=== PATIENT | female | born 1965 | race Caucasian/White ===

== ENCOUNTER → 2017-08-19 | Outpatient (CLI) | payer BC ==
--- NOTE | 2017-08-20 08:51 | RADIOLOGY REPORT (SQ) ---
EXAM DESCRIPTION: MRI HEAD WITHOUT COMPLETED DATE/TIME: 08/19/2017 7:00 pm REASON FOR STUDY: HEADACHE R51 HEADACHE COMPARISON: None. TECHNIQUE: Multiplanar imaging includes non-contrasted T1, T2, FLAIR, and diffusion with ADC map seq uences. Images stored on PACS. LIMITATIONS: None. FINDINGS: ANATOMY: No anomalies. Normal vascular flow voids. Pituitary fossa normal. CSF SPACES: Normal in size and contour. No hemorrhage. CEREBRUM: Sulci and gyri normal in size and contour. Occasional punctate foci of increased signal on FLAIR sequence in the white matter most consistent with chronic microangiopathic ischemic change, mi graine, or sequela of vasculitis. No evidence of hemorrhage, mass, or extraaxial fluid collection. POSTERIOR FOSSA: No signal alteration. No hemorrhage. No edema, masses or mass effect. Internal joycelyn tory canals, cerebello-pontine angles, mastoids normal. DIFFUSION IMAGING: Negative for acute or sub-acute infarction. ORBITS: No masses. Globes normal. PARANASAL SINUSES: No fluid levels. Mucosa normal. OTHER: No other significant finding. IMPRESSION: No acute findings in the brain. EVIDENCE OF ACUTE STROKE: NO. TECHNICAL DOCUMENTATION: JOB ID: [id number] [employer]- All Rights Reserved
== END ==
LOC: RAD 18:15
PROVIDERS: ATTEND Internal Medicine
DX: R51 Headache (principal)
CPT/HCPCS: 70551

== ENCOUNTER 2018-01-03 15:57 | Observation (INO) | payer BC ==
[2018-01-03 17:05] LABS: ABSOLUTE EOSINOPHILS # (AUTO) 0.2 10^3/uL (0.0-0.6); ABSOLUTE LYMPHOCYTES (AUTO) 1.2 10^3/uL (0.5-4.7); ABSOLUTE MONOCYTES (AUTO) 0.8 10^3/uL (0.1-1.4); ABSOLUTE NEUT (AUTO) 8.6 10^3/uL (1.7-8.2); BASOPHILS % (AUTO) 0.2 % (0-2); EOSINOPHILS % (AUTO) 1.8 % (0-6); HEMATOCRIT 43.2 % (36.0-47.0); HEMOGLOBIN 14.7 g/dL (12.0-15.5); LYMPHOCYTES % (AUTO) 10.9 % (13-45); MEAN CORPUSCULAR HEMOGLOBIN 30.4 pg (27.0-33.4); MEAN CORPUSCULAR VOLUME 89 fl (80-97); MONOCYTES % (AUTO) 7.7 % (3-13); PLATELET COUNT 310 10^3/uL (150-450); RED BLOOD COUNT 4.84 10^6/uL (3.72-5.28); RED CELL DISTRIBUTION WIDTH 12.5 % (11.5-14.0); SEGMENTED NEUTROPHILS % (AUTO) 79.4 % (42-78); TOTAL CELLS COUNTED % (AUTO) 100 %; WHITE BLOOD COUNT 10.9 10^3/uL (4.0-10.5)
[2018-01-03 17:25] LABS: ALANINE AMINOTRANSFERASE 28 U/L (9-52); ALBUMIN 4.4 g/dL (3.5-5.0); ALKALINE PHOSPHATASE 63 U/L (38-126); ANION GAP 13 (5-19); ASPARTATE AMINO TRANSFERASE 25 U/L (14-36); BILIRUBIN,DIRECT 0.3 mg/dL (0.0-0.4); BILIRUBIN,TOTAL 0.5 mg/dL (0.2-1.3); BLOOD UREA NITROGEN 14 mg/dL (7-20); CALCIUM 9.8 mg/dL (8.4-10.2); CARBON DIOXIDE 28 mmol/L (22-30); CHLORIDE 106 mmol/L (98-107); GLUCOSE 77 mg/dL (75-110); IRON(TIBC) 34.7 ug/dL (37-170); POTASSIUM 4.8 mmol/L (3.6-5.0); SODIUM 147.4 mmol/L (137-145); TOTAL PROTEIN 7.6 g/dL (6.3-8.2)
--- NOTE | 2018-01-03 17:50 | RADIOLOGY REPORT (SQ) ---
EXAM DESCRIPTION: MRI HEAD WITHOUT COMPLETED DATE/TIME: 01/03/2018 5:33 pm REASON FOR STUDY: headache COMPARISON: 08/19/2017 TECHNIQUE: Multiplanar imaging includes non-contrasted T1, T2, FLAIR, and Diffusion with ADC map seq uences. Images stored on PACS. LIMITATIONS: None. FINDINGS: ANATOMY: No anomalies. Normal vascular flow voids. Pituitary fossa normal. CSF SPACES: Normal in size and contour. No hemorrhage. CEREBRUM: A few high-signal intensity lesions scattered throughout the white matter on FLAIR imaging with distribution suggesting chronic micro-vascular ischemic change. Sulci and gyri normal in size a nd contour. No evidence of hemorrhage, mass or extraaxial fluid collection. POSTERIOR FOSSA: No signal alteration. No hemorrhage. No edema, masses or mass effect. Internal joycelyn tory canals, cerebello-pontine angles, mastoids normal. DIFFUSION: Negative for acute or sub-acute infarction. ORBITS: No masses. Globes normal. PARANASAL SINUSES: Small maxillary sinus fluid levels. OTHER: No other significant finding. IMPRESSION: Negative for acute or sub-acute infarction.A few high-signal intensity lesions scattered throughout the white matter on FLAIR imaging with distribution suggesting chronic micro-vascular isc hemic change. Mild maxillary sinusitis. EVIDENCE OF ACUTE STROKE: NO. TECHNICAL DOCUMENTATION: JOB ID: [id number] [id number] [employer]- All Rights Reserved Reading location - IP/workstation name: [email or web address]
--- NOTE | 2018-01-03 19:38 | EKG REPORT ---
SEVERITY:- NORMAL ECG - SINUS RHYTHM : Confirmed by: Nate Cristobal MD 03-Jan-2018 19:36:55
[2018-01-03] MEDS ORDERED: ACETAMINOPHEN 325 MG TABLET PO PRN (20:15)
[2018-01-03] MEDS ORDERED: (PENDING PHARMACY ID) (Valacyclovir Hcl [Valacyclovir] 1,000 MG) PO PRN (20:15)
[2018-01-03] MEDS ORDERED: PAROXETINE MESYLATE 7.5 MG PO SCH (20:15)
[2018-01-03] MEDS ORDERED: ACETAMINOPHEN 325 MG TABLET ONE (20:16)
[2018-01-03] MEDS ORDERED: DEXTROSE 5%-WATER 1000 ML 1,000 ML IV PRN (20:16)
[2018-01-03 21:06] LABS: APPEARANCE,URINE CLEAR; BILIRUBIN,URINE NEGATIVE (NEGATIVE); COLOR,URINE LIGHT YELLOW; GLUCOSE, URINE NEGATIVE (NEGATIVE); KETONES,URINE NEGATIVE (NEGATIVE); URINE SPECIFIC GRAVITY 1.015
[2018-01-03] MEDS: ALPRAZOLAM 0.5 MG TABLET PO SCH (21:07)
[2018-01-03 21:10] LABS: LEUKOCYTE ESTERASE,URINE NEGATIVE (NEGATIVE); NITRITE,URINE NEGATIVE (NEGATIVE); PROTEIN,URINE NEGATIVE (NEGATIVE); UROBILINOGEN,URINE NEGATIVE mg/dL (<2.0)
[2018-01-04] MEDS ORDERED: LEVOTHYROXINE SODIUM 0.025 MG TABLET PO SCH (06:00)
--- NOTE | 2018-01-04 09:48 | PDOC H&P ---
History of Present Illness Admission Date/PCP: 01/03/18 15:57 NIESHA LEON MD History of Present Illness: JEFFERY LAY is a 52 year old female, she came to the office for evaluation of multiple complaints, including palpitation, headache, elevated blood pressure , numbness of the extremities, chest pain, there was no apparent unifying diagnosis for this complaints, I felt it is best to admit her for observation and evaluation of her symptoms. MRI brain was normal it was negative for any intracranial pathology, metabolic panel including thyroid function test, B12 level, kidney function test, liver function tests all came back normal. The hemogram was normal. The blood pressure recorded in the hospital was 130 systolic, the blood pressure, in the office was 160 systolic. There is no metabolic or structural explanation for her symptoms on further questioning she admitted to having a lot of stress at home, she is taking custody of her grandchildren, that seems to be giving her some stressful conditions. She brought with her to the office a logbook of her blood pressure recordings, it showed persistent elevated blood pressure, she is presently not on any medication for the control blood pressure, based on the log book recording of the blood pressure she meets the criteria for the diagnosis of hypertension which is persistent elevated blood pressure. Social History Smoking Status: Unknown if Ever Smoked Hx Prescription Drug Abuse: No Family History Parental Family History Reviewed: Yes Children Family History Reviewed: Yes Sibling(s) Family History Reviewed.: Yes Medication/Allergy Home Medications: Alprazolam [Xanax 0.5 mg Tablet] 0.5 mg PO BID 01/03/18 Levothyroxine Sodium [Synthroid] 25 mcg PO Q6AM 01/03/18 Paroxetine Mesylate [Brisdelle] 7.5 mg PO QPM 01/03/18 Allergies/Adverse Reactions: No Known Allergies Allergy (Unverified 01/03/18 20:14) Review of Systems Constitutional: ABSENT: chills, fever(s), headache(s), weight gain, weight loss Eyes: ABSENT: visual disturbances Ears: ABSENT: hearing changes Cardiovascular: ABSENT: chest pain, dyspnea on exertion, edema, orthropnea, palpitations Respiratory: PRESENT: cough. ABSENT: hemoptysis Gastrointestinal: ABSENT: abdominal pain, constipation, diarrhea, hematemesis, hematochezia, nausea, vomiting Genitourinary: ABSENT: dysuria, hematuria Musculoskeletal: ABSENT: joint swelling Integumentary: ABSENT: rash, wounds Neurological: ABSENT: abnormal gait, abnormal speech, confusion, dizziness, focal weakness, syncope Psychiatric: ABSENT: anxiety, depression, homidical ideation, suicidal ideation Endocrine: ABSENT: cold intolerance, heat intolerance, menstrual abnormalities, polydipsia, polyuria Hematologic/Lymphatic: ABSENT: easy bleeding, easy bruising, lymphadenopathy Physical Exam Vital Signs: Temp Pulse Resp BP Pulse Ox 97.6 F 57 L 20 117/64 99 01/04/18 03:39 01/04/18 07:00 01/04/18 03:39 01/04/18 03:39 01/04/18 03:39 Intake & Output 01/03/18 01/04/18 01/05/18 06:59 06:59 06:59 Intake Total 1187 Output Total 850 Balance 337 General appearance: PRESENT: no acute distress, well-developed, well-nourished Head exam: PRESENT: atraumatic, normocephalic Eye exam: PRESENT: conjunctiva pink, EOMI, PERRLA Ear exam: PRESENT: normal external ear exam Mouth exam: PRESENT: moist, tongue midline Neck exam: PRESENT: full ROM Respiratory exam: PRESENT: clear to auscultation bal Cardiovascular exam: PRESENT: RRR, +S1, +S2 Pulses: PRESENT: normal dorsalis pedis pul, +2 pedal pulses bilateral Vascular exam: PRESENT: normal capillary refill GI/Abdominal exam: PRESENT: normal bowel sounds, soft Rectal exam: PRESENT: deferred Neurological exam: PRESENT: alert, awake, oriented to person, oriented to place , oriented to time, oriented to situation, CN II-XII grossly intact Psychiatric exam: PRESENT: appropriate affect, normal mood Skin exam: PRESENT: dry, intact, warm Results Laboratory Results: 01/03/18 16:55 01/03/18 16:55 01/03/18 01/03/18 01/03/18 16:55 16:55 16:55 WBC 10.9 H RBC 4.84 Hgb 14.7 Hct 43.2 MCV 89 MCH 30.4 MCHC 34.0 RDW 12.5 Plt Count 310 Seg Neutrophils % 79.4 H Lymphocytes % 10.9 L Monocytes % 7.7 Eosinophils % 1.8 Basophils % 0.2 Absolute Neutrophils 8.6 H Absolute Lymphocytes 1.2 Absolute Monocytes 0.8 Absolute Eosinophils 0.2 Absolute Basophils 0.0 Sodium 147.4 H Potassium 4.8 Chloride 106 Carbon Dioxide 28 Anion Gap 13 BUN 14 Creatinine 0.79 Est GFR ( Amer) > 60 Est GFR (Non-Af Amer) > 60 Glucose 77 Calcium 9.8 Iron 34.7 L TIBC 364 % Saturation 10 Ferritin 30.10 Total Bilirubin 0.5 AST 25 ALT 28 Alkaline Phosphatase 63 Total Protein 7.6 Albumin 4.4 Vitamin B12 400.0 Folate 15.90 TSH 0.65 Urine Color Urine Appearance Urine pH Ur Specific [place] Urine Protein Urine Glucose (UA) Urine Ketones Urine Blood Urine Nitrite Ur Leukocyte Esterase Stool Occult Blood 01/03/18 01/03/18 20:20 23:49 WBC RBC Hgb Hct MCV MCH MCHC RDW Plt Count Seg Neutrophils % Lymphocytes % Monocytes % Eosinophils % Basophils % Absolute Neutrophils Absolute Lymphocytes Absolute Monocytes Absolute Eosinophils Absolute Basophils Sodium Potassium Chloride Carbon Dioxide Anion Gap BUN Creatinine Est GFR ( Amer) Est GFR (Non-Af Amer) Glucose Calcium Iron TIBC % Saturation Ferritin Total Bilirubin AST ALT Alkaline Phosphatase Total Protein Albumin Vitamin B12 Folate TSH Urine Color LIGHT YELLOW Urine Appearance CLEAR Urine pH 6.0 Ur Specific [place] 1.015 Urine Protein NEGATIVE Urine Glucose (UA) NEGATIVE Urine Ketones NEGATIVE Urine Blood NEGATIVE Urine Nitrite NEGATIVE Ur Leukocyte Esterase NEGATIVE Stool Occult Blood NEGATIVE Impressions: Head MRI 01/03/18 00:00 IMPRESSION: Negative for acute or sub-acute infarction.A few high-signal intensity lesions scattered throughout the white matter on FLAIR imaging with distribution suggesting chronic micro-vascular ischemic change. Mild maxillary sinusitis. EVIDENCE OF ACUTE STROKE: NO. Assessment & Plan - Diagnosis (1) Hypertension Qualifiers: Hypertension type: essential hypertension Qualified Code(s): I10 - Essential (primary) hypertension Is this a current diagnosis for this admission?: Yes Plan: She meets criteria for hypertension, she be discharged on low-dose amlodipine (2) Acute sinusitis Qualifiers: Sinusitis location: unspecified location Recurrence: recurrent Qualified Code(s): J01.91 - Acute recurrent sinusitis, unspecified Is this a current diagnosis for this admission?: Yes
[2018-01-04 09:50] VITALS: BP 134/64
[2018-01-04] MEDS: ALPRAZOLAM 0.5 MG TABLET PO SCH (09:53)
--- NOTE | 2018-01-04 09:59 | PDOC DISCHARGE SUMMARY ---
General - Admit/Disc Date/PCP Admission Date/Primary Care Provider: 01/03/18 15:57 NIESHA LEON MD Discharge Date: 01/04/18 - Discharge Diagnosis (1) Hypertension Is this a current diagnosis for this admission?: Yes (2) Acute sinusitis Is this a current diagnosis for this admission?: Yes - Additional Information Discharge Diet: As Tolerated Prescriptions: Amlodipine Besylate 2.5 mg PO DAILY #30 tab Chlorpheniramine/Codeine Phos [Chlorpheniramine-Codeine Liquid] 10 ml PO Q6 PRN #180 ml PRN Reason: Montelukast Sodium 10 mg PO DAILY #30 tablet Home Medications: Alprazolam [Xanax 0.5 mg Tablet] 0.5 mg PO BID 01/03/18 Levothyroxine Sodium [Synthroid] 25 mcg PO Q6AM 01/03/18 Paroxetine Mesylate [Brisdelle] 7.5 mg PO QPM 01/03/18 Amlodipine Besylate 2.5 mg PO DAILY #30 tab 01/04/18 Chlorpheniramine/Codeine Phos [Chlorpheniramine-Codeine Liquid] 10 ml PO Q6 PRN #180 ml 01/04/18 Montelukast Sodium 10 mg PO DAILY #30 tablet 01/04/18 History of Present Illness History of Present Illness: JEFFERY LAY is a 52 year old female, she came to the office for evaluation of multiple complaints, including palpitation, headache, elevated blood pressure , numbness of the extremities, chest pain, there was no apparent unifying diagnosis for this complaints, I felt it is best to admit her for observation and evaluation of her symptoms. MRI brain was normal it was negative for any intracranial pathology, metabolic panel including thyroid function test, B12 level, kidney function test, liver function tests all came back normal. The hemogram was normal. The blood pressure recorded in the hospital was 130 systolic, the blood pressure, in the office was 160 systolic. There is no metabolic or structural explanation for her symptoms on further questioning she admitted to having a lot of stress at home, she is taking custody of her grandchildren, that seems to be giving her some stressful conditions. She brought with her to the office a logbook of her blood pressure recordings, it showed persistent elevated blood pressure, she is presently not on any medication for the control blood pressure, based on the log book recording of the blood pressure she meets the criteria for the diagnosis of hypertension which is persistent elevated blood pressure. Hospital Course Hospital Course: Patient was admitted for the evaluation and management of multiple symptoms, there was no unifying diagnosis, MRI brain was done it was negative, she is presently on the stressful situation, she is taking custody of her grandchildren , blood pressure persistently elevated from outpatient recording in the logbook. She also complained of cough, she was admitted for observation. Physical Exam Vital Signs: Temp Pulse Resp BP Pulse Ox 97.6 F 57 L 20 134/64 H 99 01/04/18 09:40 01/04/18 09:40 01/04/18 09:40 01/04/18 09:40 01/04/18 09:40 Intake & Output 01/03/18 01/04/18 01/05/18 06:59 06:59 06:59 Intake Total 1187 Output Total 850 Balance 337 General appearance: PRESENT: no acute distress, well-developed, well-nourished Head exam: PRESENT: atraumatic, normocephalic Eye exam: PRESENT: conjunctiva pink, EOMI, PERRLA Ear exam: PRESENT: normal external ear exam Mouth exam: PRESENT: moist, tongue midline Neck exam: PRESENT: full ROM Respiratory exam: PRESENT: clear to auscultation bal Cardiovascular exam: PRESENT: RRR, +S1, +S2 Pulses: PRESENT: normal dorsalis pedis pul, +2 pedal pulses bilateral Vascular exam: PRESENT: normal capillary refill GI/Abdominal exam: PRESENT: normal bowel sounds, soft Rectal exam: PRESENT: deferred Neurological exam: PRESENT: alert, awake, oriented to person, oriented to place , oriented to time, oriented to situation, CN II-XII grossly intact Psychiatric exam: PRESENT: appropriate affect, normal mood Skin exam: PRESENT: dry, intact, warm Results Laboratory Results: 01/03/18 16:55 01/03/18 16:55 01/03/18 01/03/18 01/03/18 16:55 16:55 16:55 WBC 10.9 H RBC 4.84 Hgb 14.7 Hct 43.2 MCV 89 MCH 30.4 MCHC 34.0 RDW 12.5 Plt Count 310 Seg Neutrophils % 79.4 H Lymphocytes % 10.9 L Monocytes % 7.7 Eosinophils % 1.8 Basophils % 0.2 Absolute Neutrophils 8.6 H Absolute Lymphocytes 1.2 Absolute Monocytes 0.8 Absolute Eosinophils 0.2 Absolute Basophils 0.0 Sodium 147.4 H Potassium 4.8 Chloride 106 Carbon Dioxide 28 Anion Gap 13 BUN 14 Creatinine 0.79 Est GFR ( Amer) > 60 Est GFR (Non-Af Amer) > 60 Glucose 77 Calcium 9.8 Iron 34.7 L TIBC 364 % Saturation 10 Ferritin 30.10 Total Bilirubin 0.5 AST 25 ALT 28 Alkaline Phosphatase 63 Total Protein 7.6 Albumin 4.4 Vitamin B12 400.0 Folate 15.90 TSH 0.65 Urine Color Urine Appearance Urine pH Ur Specific [place] Urine Protein Urine Glucose (UA) Urine Ketones Urine Blood Urine Nitrite Ur Leukocyte Esterase Stool Occult Blood 01/03/18 01/03/18 20:20 23:49 WBC RBC Hgb Hct MCV MCH MCHC RDW Plt Count Seg Neutrophils % Lymphocytes % Monocytes % Eosinophils % Basophils % Absolute Neutrophils Absolute Lymphocytes Absolute Monocytes Absolute Eosinophils Absolute Basophils Sodium Potassium Chloride Carbon Dioxide Anion Gap BUN Creatinine Est GFR ( Amer) Est GFR (Non-Af Amer) Glucose Calcium Iron TIBC % Saturation Ferritin Total Bilirubin AST ALT Alkaline Phosphatase Total Protein Albumin Vitamin B12 Folate TSH Urine Color LIGHT YELLOW Urine Appearance CLEAR Urine pH 6.0 Ur Specific [place] 1.015 Urine Protein NEGATIVE Urine Glucose (UA) NEGATIVE Urine Ketones NEGATIVE Urine Blood NEGATIVE Urine Nitrite NEGATIVE Ur Leukocyte Esterase NEGATIVE Stool Occult Blood NEGATIVE Impressions: Head MRI 01/03/18 00:00 IMPRESSION: Negative for acute or sub-acute infarction.A few high-signal intensity lesions scattered throughout the white matter on FLAIR imaging with distribution suggesting chronic micro-vascular ischemic change. Mild maxillary sinusitis. EVIDENCE OF ACUTE STROKE: NO. Qualifiers - * PATIENT BEING DISCHARGED WITH ANY OF THE FOLLOWING DIAGNOSIS: No
== END 2018-01-04 10:30 | disposition home or self-care (01) ==
LOC: 3W 15:57
PROVIDERS: ADMIT Internal Medicine; ATTEND Internal Medicine
DX: I10 Essential (primary) hypertension (principal); J32.0 Chronic maxillary sinusitis; R00.2 Palpitations; R20.0 Anesthesia of skin; R05 Cough; Z63.79 Other stressful life events affecting family and household; Z79.899 Other long term (current) drug therapy
CPT/HCPCS: 36415; 87086; 82607; 82728; 82746; 83540; 83550; 84443; 85025; 82272; 80076; 80048; 81001; 70551; 93005; 93010; G0378 ×2; J7060

== ENCOUNTER 2018-07-19 13:02 | Emergency (ER) | payer BC ==
[2018-07-19] MEDS ORDERED: TETRACAINE HCL 0.5% OPH SOLN 4 ML OD ONE (14:30)
[2018-07-19] MEDS ORDERED: TOBRAMYCIN SULFATE/DEXAMETH OPH SUSP 2.5 ML OU ONE (14:46)
--- NOTE | 2018-07-19 14:52 | ER Document Report ---
Addendum entered and electronically signed by ODALYS TELLO PA-C 07/19/18 15:56: Discharge - Discharge Clinical Impression: Acute conjunctivitis, bilateral Qualifiers: Acute conjunctivitis type: bacterial Qualified Code(s): H10.33 - Unspecified acute conjunctivitis, bilateral Condition: Stable Disposition: HOME, SELF-CARE Instructions: Conjunctivitis ([facility]) Additional Instructions: Conjunctivitis You have an infection in your eye, commonly known as "pink eye." Conjunctivitis causes redness, mild discomfort, itching, and mattering on the eyelids. It is very contagious, so you must be careful to wash your hands after touching your face so you don't pass the infection on to others. Conjunctivitis is caused by both viruses and bacteria. It usually responds quickly to treatment with antibiotic drops. These should be placed in the eye as prescribed (usually every three to four hours while you're awake). If you wear contact lenses, don't put them in your eyes until the infection is cleared and you are no longer using the drops (unless your doctor advises you otherwise). Should you develop increasing eye pain, severe swelling, decreased vision, or fail to improve as expected, please return for re-examination. I have written you for a different type of an antibiotic at also has a slight steroid in it as well to hopefully work on any kind inflammatory response that may be coming along with this. It is going to be 1 drop each eye every 4 hours for the first 24 hours and then every 6 hours for 7 days. Again monitor yourself for washing of hands changing wash rag's and pillowcases though you do not wear makeup double check to make sure you do not grab something that you had previously. I am giving you the name of the direct chill casting operator group to work well with our hospital here if you are having continued problems with this you probably need to follow-up with them on Saturday or Saturday. If you should have any problems over the weekend return to ER for a recheck. Prescriptions: Tobramycin Sulfate/Dexameth [Tobradex Oph Drops 2.5 Ml Bottle] 1 drop AU ASDIR PRN #1 bottle PRN Reason: Tobramycin Sulfate/Dexameth [Tobradex Oph Drops 2.5 Ml Bottle] 1 drop AU ASDIR PRN #1 bottle PRN Reason: Referrals: BATSHEVA PEREZ DO [ACTIVE STAFF] - Follow up as needed NIESHA LEON MD [Primary Care Provider] - Follow up as needed Addendum entered and electronically signed by ODALYS TELLO PA-C 07/19/18 14:57: Discharge - Discharge Clinical Impression: Acute conjunctivitis, bilateral Qualifiers: Acute conjunctivitis type: bacterial Qualified Code(s): H10.33 - Unspecified acute conjunctivitis, bilateral Condition: Stable Disposition: HOME, SELF-CARE Instructions: Conjunctivitis ([facility]) Additional Instructions: Conjunctivitis You have an infection in your eye, commonly known as "pink eye." Conjun ctivitis causes redness, mild discomfort, itching, and mattering on the eyelids. It is very contagious, so you must be careful to wash your hands after touching your face so you don't pass the infection on to others. Conjunctivitis is caused by both viruses and bacteria. It usually responds quickly to treatment with antibiotic drops. These should be placed in the eye as prescribed (usually every three to four hours while you're awake). If you wear contact lenses, don't put them in your eyes until the infection is cleared and you are no longer using the drops (unless your doctor advises you otherwise). Should you develop increasing eye pain, severe swelling, decreased vision, or fail to improve as expected, please return for re-examination. I have written you for a different type of an antibiotic at also has a slight steroid in it as well to hopefully work on any kind inflammatory response that may be coming along with this. It is going to be 1 drop each eye every 4 hours for the first 24 hours and then every 6 hours for 7 days. Again monitor yourself for washing of hands changing wash rag's and pillowcases though you do not wear makeup double check to make sure you do not grab something that you had previously. I am giving you the name of the direct chill casting operator group to work well with our hospital here if you are having continued problems with this you probably need to follow-up with them on Saturday or Saturday. If you should have any problems over the weekend return to ER for a recheck. Referrals: BATSHEVA PEREZ DO [ACTIVE STAFF] - Follow up as needed NIESHA LEON MD [Primary Care Provider] - Follow up as needed Original Note: ED Eye Complaint - General Chief Complaint: Eye Problem Stated Complaint: EYE PAIN Time Seen by Provider: 07/19/18 14:23 Mode of Arrival: Ambulatory Information source: Patient Notes: Patient is a 53-year-old female comes emergency room complaining of red eyes. She states she started about 1 week ago with it in her left eye. She contacted her primary medical provider who called her in some Cipro drops. She has been using them religiously and states that it jumped from her left eye to her right eye and then back again to her left eye. She also complains that she is having crusting in the morning that is a greenish in color and she has to use warm wash rag and soap to get it off and open her eyes. She denies any visual changes she does not wear contacts. She does wear eyeglasses. 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 She does not smoke. She states that she does ask process of washing of her hands and trying to avoid touching her eyes. TRAVEL OUTSIDE OF THE [place] IN LAST 30 DAYS: No - HPI Onset: Last week Eye location: Bilateral Occurred at: Home Quality of pain: Other - Itchy Severity: Moderate Pain Level: 3 Exposure: Conjunctivitis Safety glasses worn: No Contact lenses worn: No Associated symptoms: Itching. denies: Photophobia, Orbital swelling, Blurred vision, Double vision, Decreased vision, Loss of vision - Related Data Allergies/Adverse Reactions: No Known Allergies Allergy (Unverified 01/03/18 20:14) Past Medical History - Social History Smoking Status: Never Smoker Frequency of alcohol use: None Drug Abuse: None Lives with: Family Family History: Reviewed & Not Pertinent Patient has suicidal ideation: No Patient has homicidal ideation: No - Past Medical History Cardiac Medical History: Reports: Hx Hypertension Renal/ Medical History: Denies: Hx Peritoneal Dialysis Past Surgical History: Reports: Hx Hysterectomy Review of Systems - Review of Systems Constitutional: No symptoms reported EENT: See HPI, Eye discharge Cardiovascular: No symptoms reported Respiratory: No symptoms reported Gastrointestinal: No symptoms reported Genitourinary: No symptoms reported Female Genitourinary: No symptoms reported Musculoskeletal: No symptoms reported Skin: No symptoms reported Hematologic/Lymphatic: No symptoms reported Neurological/Psychological: No symptoms reported -: Yes All other systems reviewed and negative Physical Exam - Vital signs Vitals: Temp Pulse BP Pulse Ox 97.9 F 90 144/72 H 96 07/19/18 13:39 07/19/18 13:39 07/19/18 13:39 07/19/18 13:39 Interpretation: Hypertensive - Notes Notes: PHYSICAL EXAMINATION: GENERAL: Patient is a well-nourished well-developed 53-year-old female who is in no apparent distress on physical exam this afternoon. She does however appear somewhat uncomfortable because of her eye situation. HEAD: Atraumatic, normocephalic. EYES: Pupils are equal and reactive to light. Examination of the conjunctiva shows it to be very much injected greater on the left than the right. The right eye is moderately injected and there appear to be a defect on the lateral portion of the sclera. The lids had some moderate amount of residue from crusting still present and mild erythema on the upper and lower lid themselves. Under fluoroscopy seen stain I did not find any defects in the sclera or the conjunctiva or the cornea. I stained the right eye only. I did look at the right eye under slit lamp and again did not see any defects. It must have been a glare of some sort. There is no visual problems currently. ENT: Examination head and upper airway showed nasal mucosa to be normal in appearance moist mucosa with no rhinorrhea. There is no nasal congestion noted. Bilateral maxillary and frontal sinuses have no discomfort or pain to palpation or percussion. The posterior pharynx is normal in appearance moist with no erythema no exudates the airway is patent. NECK: Normal range of motion, supple without lymphadenopathy LUNGS: Breath sounds clear to auscultation bilaterally and equal. No wheezes rales or rhonchi. HEART: Regular rate and rhythm without murmurs Female : deferred Musculoskeletal: Normal range of motion, no pitting or edema. No cyanosis. NEUROLOGICAL: Normal speech, normal gait. Normal sensory, motor exams PSYCH: Normal mood, normal affect. SKIN: Warm, Dry, normal turgor, no rashes or lesions noted. Course - Re-evaluation Re-evalutation: 07/19/18 14:52 As stated examination of the right eye was more concerning with what appeared thought to be a defect of some sort in the sclera I did examine it closely with fluorescein and slit and there was no abnormalities found. It must of been a glare of some sort on my initial examination that I had the do in the hallway bed. Patient has still has no complaints of visual problems. I still believe this to be a bacterial conjunctivitis that is spreading back and forth. I have given patient instructions on washing hands changing wash rag staining pillowcases and even though she says she continues to wash heavily and not touch her eyes can always occur in her sleep. I am going to give her the name of the direct chill casting operator that group locally so she may contact them if is not getting a whole lot better by Saturday. We are going to change her to TobraDex to also work on any kind of a inflammatory response. - Vital Signs Vital signs: Temp Pulse Resp BP Pulse Ox 97.9 F 90 144/72 H 96 07/19/18 13:39 07/19/18 13:39 07/19/18 13:39 07/19/18 13:39 Discharge - Discharge Clinical Impression: Acute conjunctivitis, bilateral Qualifiers: Acute conjunctivitis type: bacterial Qualified Code(s): H10.33 - Unspecified acute conjunctivitis, bilateral Condition: Stable Disposition: HOME, SELF-CARE Instructions: Conjunctivitis ([facility]) Additional Instructions: Conjunctivitis You have an infection in your eye, commonly known as "pink eye." Conjunctivitis causes redness, mild discomfort, itching, and mattering on the eyelids. It is very contagious, so you must be careful to wash your hands after touching your face so you don't pass the infection on to others. Conjunctivitis is caused by both viruses and bacteria. It usually responds quickly to treatment with antibiotic drops. These should be placed in the eye as prescribed (usually every three to four hours while you're awake). If you wear contact lenses, don't put them in your eyes until the infection is cleared and you are no longer using the drops (unless your doctor advises you otherwise). Should you develop increasing eye pain, severe swelling, decreased vision, or fail to improve as expected, please return for re-examination. I have written you for a different type of an antibiotic at also has a slight steroid in it as well to hopefully work on any kind inflammatory response that may be coming along with this. It is going to be 1 drop each eye every 4 hours for the first 24 hours and then every 6 hours for 7 days. Again monitor yourself for washing of hands changing wash rag's and pillowcases though you do not wear makeup double check to make sure you do not grab something that you had previously. I am giving you the name of the direct chill casting operator group to work well with our hospital here if you are having continued problems with this you probably need to follow-up with them on Saturday or Saturday. If you should have any problems over the weekend return to ER for a recheck. Referrals: NIESHA LEON MD [Primary Care Provider] - Follow up as needed BATSHEVA PEREZ DO [ACTIVE STAFF] - Follow up as needed
[2018-07-19 16:04] VITALS: BP 119/60
== END 2018-07-19 16:04 | disposition home or self-care (01) ==
LOC: ER 13:02
DX: H10.33 Unspecified acute conjunctivitis, bilateral (principal); I10 Essential (primary) hypertension; H57.12 Ocular pain, left eye
CPT/HCPCS: 99283; J3490

== ENCOUNTER → 2019-02-19 | Outpatient (CLI) | payer BC | LOC: WI 11:54 | PROVIDERS: ATTEND Internal Medicine | DX: Z12.31 Encounter for screening mammogram for malignant neoplasm of breast (principal) | CPT/HCPCS: 77063; 77067 ==

== ENCOUNTER → 2019-03-11 | Outpatient (CLI) | payer BC ==
--- NOTE | 2019-03-11 17:12 | WOMENS IMAGING REPORT ---
EXAM DESCRIPTION: RIGHT DIAGNOSTIC MAMMO W/CAD; U/S BREAST UNILAT LIMITED COMPLETED DATE/TIME: 03/11/2019 12:43 pm; 03/11/2019 2:05 pm REASON FOR STUDY: N63.11 DX MAMMO R BREAST; RT BREAST N63.11 N63.11 UNSPECIFIED LUMP IN THE RIGHT B REAST, UPPER OUTER GABE COMPARISON: 02/19/2019 EXAM PARAMETERS: True lateral view and cone compression views of the right breast LIMITATIONS: None. FINDINGS: BREAST LATERALITY: Right MASSES: No definite mass. CALCIFICATIONS: No new or suspicious calcifications. ARCHITECTURAL DISTORTION: None. DEVELOPING DENSITY: None. ASYMMETRY: Persistent asymmetry in the upper-outer quadrant. OTHER: No other significant findings. BREAST ULTRASOUND: TECHNIQUE: Static and dynamic grayscale images acquired of the right breast in the specific areas of clinical/mammographic concern. Selected color Doppler images recorded. ELASTOGRAPHY PERFORMED: No. LIMITATIONS: None. FINDINGS: MASS: Dense fibroglandular tissue is noted in the upper-outer quadrant corresponding to the asymmetri c density seen on mammography. At 1 to 2 o'clock, there are 2 small hypoechoic nodules, 1 measuring 4 mm and 1 measuring 5 mm. Appearance is most consistent with small cysts. No suspicious solid mass es. ELASTOGRAPHY CHARACTERISTICS: Not applicable. OTHER: No other significant finding. IMPRESSION: 1. Probably benign findings in the right breast. The patient has had previous mammogra ms and comparison with these studies if they are obtained will be performed. If these films are not receive then six-month followup mammography would be warranted. BREAST DENSITY: c. The breasts are heterogeneously dense, which may obscure small masses. BIRAD: ASSESSMENT: 3 Probably benign finding. Initial short-interval follow-up suggested. RECOMMENDATION: RECOMMENDED FOLLOW UP: Comparison with prior studies if they are received otherwise six-month followup mammography. SPECIFIC INTERVENTION/IMAGING/CONSULTATION RECOMMENDED:No additional intervention/ imaging/consultati on needed at this time. COMMUNICATION:The negative/benign results were communicated to the patient. COMMENT: The patient has been notified of the results by letter per MQSA requirements. Additional no tification policies are in place for contacting patient with suspicious or incomplete findings. Quality ID #[id number]: The [employer] recommends an annual screening mammogram for women aged 40 years or over. This facility utilizes a reminder system to ensure that all patients receive reminder letters, and/or direct phone calls for appointments. This includes reminders for routine scr eening mammograms, diagnostic mammograms, or other Breast Imaging Interventions when appropriate. Th is patient will be placed in the appropriate reminder system. TECHNICAL DOCUMENTATION: FINDING NUMBER: (1) ASSESSMENT: (1) JOB ID: [id number] [employer]- All Rights Reserved Reading location - IP/workstation name: [email or web address]
== END ==
LOC: WI 12:05
PROVIDERS: ATTEND Internal Medicine
DX: N63.11 Unspecified lump in the right breast, upper outer quadrant (principal)
CPT/HCPCS: 76642

== ENCOUNTER → 2020-02-25 | Outpatient (CLI) | payer BC ==
--- NOTE | 2020-02-25 15:38 | RADIOLOGY REPORT (SQ) ---
EXAM DESCRIPTION: CT ABD/PELVIS WITH IV ONLY IMAGES COMPLETED DATE/TIME: 02/25/2020 2:09 pm REASON FOR STUDY: R10.31 RIGHT LOWER QUADRANT PAIN for 3 days. Prior hysterectomy. R10.31 RIGHT L OWER QUADRANT PAIN COMPARISON: None. TECHNIQUE: CT scan of the abdomen and pelvis performed using helical scanning technique with dynamic intravenous contrast injection. No oral contrast. Images reviewed with lung, soft tissue, and bone windows. Reconstructed coronal and sagittal MPR images reviewed. Delayed images for evaluation of the urinary system also acquired. All images stored on PACS. All CT scanners at this facility use dose modulation, iterative reconstruction, and/or weight based d osing when appropriate to reduce radiation dose to as low as reasonably achievable (ALARA). [facility]: Dose Right [facility]: CareDose [facility]: Dose Right [facility]: Teradose 4D [facility]: Gigamon CONTRAST TYPE AND DOSE: contrast/concentration: Isovue 350.00 mmol/ml; Total Contrast Delivered: 86. 0 ml; Total Saline Delivered: 69.0 ml RENAL FUNCTION: GFR > 60. RADIATION DOSE: CT Rad equipment meets quality standard of care and radiation dose reduction techniq ues were employed. CTDIvol: 6.9 - 6.9 mGy. DLP: 711 mGy-cm.. LIMITATIONS: None. FINDINGS: LOWER CHEST: No significant findings. No nodules or infiltrates. LIVER: Normal size and position. No focal hepatic mass. Hepatic and portal veins are patent. No bi liary ductal dilation. SPLEEN: Normal size. No focal lesions. PANCREAS: No masses. No significant calcifications. No adjacent inflammation or peripancreatic fluid collections. Pancreatic duct not dilated. GALLBLADDER: No identified stones by CT criteria. No inflammatory changes to suggest cholecystitis. ADRENAL GLANDS: No significant masses or asymmetry. RIGHT KIDNEY AND URETER: No solid masses. No significant calcifications. No hydronephrosis or hyd roureter. LEFT KIDNEY AND URETER: No solid masses. No significant calcifications. No hydronephrosis or hydr oureter. AORTA AND VESSELS: No aneurysm. No dissection. Renal arteries, SMA, celiac without stenosis. RETROPERITONEUM: No retroperitoneal adenopathy, hemorrhage or masses. BOWEL AND PERITONEAL CAVITY: No masses or inflammatory changes. No free fluid or peritoneal masses. APPENDIX: Normal. PELVIS: No mass. No free fluid. Normal bladder. ABDOMINAL WALL: No masses. No hernias. BONES: No significant or acute findings. OTHER: No other significant finding. IMPRESSION: NO SIGNIFICANT OR ACUTE FINDING IN THE ABDOMEN OR PELVIS ON CT SCAN WITH IV CONTRAST. TECHNICAL DOCUMENTATION: JOB ID: [id number] Quality ID # [id number]: Final reports with documentation of one or more dose reduction techniques (e.g., Au tomated exposure control, adjustment of the mA and/or kV according to patient size, use of iterative reconstruction technique) 2010 [employer]- All Rights Reserved Reading location - IP/workstation name: [email or web address]
== END ==
LOC: RAD 14:43
PROVIDERS: ATTEND Internal Medicine
DX: R10.31 Right lower quadrant pain (principal)
CPT/HCPCS: 74177; 82565